=== PATIENT | male | born 1955 | race Caucasian/White ===

== ENCOUNTER 2021-06-04 14:02 | Inpatient (IN) | payer BC, MEDICARE ==
[~2021-06-04] VITALS: Ht 167.6 cm; Wt 53.2 kg
[2021-06-04 15:08] LABS: Basophils # (auto) 0.1 10 ^3/uL (0-0.2); Mean Corpuscular Hgb Conc. 33.4 g/dL (32.0-36.0); Monocytes % (auto) 7.9 % (0.0-12.0); Red Blood Cells 4.45 10^6/uL (4.5-5.90)
[2021-06-04 15:10] LABS: Basophils % (auto) 0.4 % (0.0-2.0); Eosinophils # (auto) 0.2 10 ^3/uL (0-0.8); Eosinophils % (auto) 1.3 % (0.0-7.0); Hematocrit 41.8 % (41.0-53.0); Lymphocytes % (auto) 7.8 % (10.0-50.0); Mean Corpuscular Hemoglobin 31.4 pg (28.0-32.0); Neutrophils # (auto) 10.9 10 ^3/uL (1.6-8.6); Neutrophils % (auto) 82.6 % (37.0-80.0); Red Cell Distribution Width 14.3 % (11.8-14.3); White Blood Cell 13.2 10^3/uL (4.4-10.8)
[2021-06-04 15:18] LABS: Calcium 8.6 mg/dL (8.5-10.1); Magnesium 3.3 mg/dL (1.6-2.6); Potassium 3.3 mmol/L (3.5-5.1)
[2021-06-04 15:23] LABS: BUN/Creatinine Ratio 11.2; Bilirubin, Total 0.2 mg/dL (0.2-1.0); Total Protein 7.5 g/dL (6.4-8.2)
[2021-06-04] MEDS ORDERED: POTASSIUM EFFERVESENT TAB 25 MEQ PO ONE (18:30)
[2021-06-04] MEDS ORDERED: BACITRACIN TOP OINT 1 UD PKG TOP ONE (21:15)
[2021-06-04] MEDS ORDERED: HYDROcodone-ACET 5/325MG TAB PO PRN (21:30)
[2021-06-04] MEDS ORDERED: DOCUSATE SOD 100 MG CAP PO PRN (21:30)
[2021-06-04] MEDS ORDERED: ONDANSETRON HCL 4 MG/2 ML VIAL IV PRN (21:30)
[2021-06-04] MEDS ORDERED: ACETAMINOPHEN 325 MG TAB PO PRN (21:30)
[2021-06-04] MEDS ORDERED: NITROGLYCERIN 0.4 MG SL TAB SL PRN (21:45)
[2021-06-04] MEDS ORDERED: cefTRIAXone 1GM/50ML D5W 50 ML IV ONE (21:45)
[2021-06-04] MEDS ORDERED: MORPHINE SULFATE INJECTION 2 MG/ML SYRG IV PRN (21:45)
[2021-06-04] MEDS: BACITRACIN TOP OINT 1 UD PKG TOP SCH (22:00)
[2021-06-04] MEDS: SODIUM CHLOR 0.9% PF (SALINE LOCK) 10ML VIAL/SYR IV SCH (22:00)
[2021-06-04] MEDS: ASCORBIC ACID 500 MG TAB PO SCH (22:00)
[2021-06-04] MEDS: ATORVASTATIN 20 MG TAB PO SCH (22:00)
[2021-06-05] VITALS (10 sets, daily range): BP systolic 112–128; BP diastolic 69–84
[2021-06-05] MEDS ORDERED: TEMAZEPAM 15 MG CAP PO ONE ×2 (02:15→21:00)
[2021-06-05] MEDS ORDERED: IBUP800T27 PO (04:12)
[2021-06-05] MEDS ORDERED: TEMA15CA2 PO (04:13)
[2021-06-05] MEDS ORDERED: GABA300C10 PO (04:13)
[2021-06-05] MEDS ORDERED: AMLO-489 PO (04:14)
[2021-06-05] MEDS ORDERED: HYDR12.56 PO (04:14)
[2021-06-05] MEDS ORDERED: METH100I PO (04:16)
[2021-06-05] MEDS ORDERED: UMEC1AER IN (04:18)
[2021-06-05] MEDS ORDERED: ATOR20TA PO (04:29)
[2021-06-05 05:31] LABS: Basophils # (auto) 0.1 10 ^3/uL (0-0.2); Eosinophils # (auto) 0.2 10 ^3/uL (0-0.8); Lymphocytes # (auto) 1.6 10 ^3/uL (0.4-5.4); Neutrophils # (auto) 5.4 10 ^3/uL (1.6-8.6); Neutrophils % (auto) 65.3 % (37.0-80.0)
[2021-06-05 05:34] LABS: Albumin 3.4 g/dL (3.4-5.0); Basophils % (auto) 0.7 % (0.0-2.0); Calcium 8.5 mg/dL (8.5-10.1); Eosinophils % (auto) 2.8 % (0.0-7.0); Hematocrit 37.5 % (41.0-53.0); Hemoglobin 13.1 g/dL (13.5-17.5); Lymphocytes % (auto) 19.3 % (10.0-50.0); Mean Corpuscular Hemoglobin 32.1 pg (28.0-32.0); Mean Corpuscular Hgb Conc. 34.9 g/dL (32.0-36.0); Mean Corpuscular Volume 92.1 fL (80.0-100.0); Monocytes % (auto) 11.9 % (0.0-12.0); Nucleated Red Blood Cells % 0.1 %; Potassium 3.4 mmol/L (3.5-5.1); Red Blood Cells 4.07 10^6/uL (4.5-5.90); Red Cell Distribution Width 14.2 % (11.8-14.3); White Blood Cell 8.3 10^3/uL (4.4-10.8)
[2021-06-05 05:39] LABS: BUN/Creatinine Ratio 16.9; Bilirubin, Total 0.2 mg/dL (0.2-1.0); Total Protein 6.5 g/dL (6.4-8.2)
[2021-06-05] MEDS: SODIUM CHLOR 0.9% PF (SALINE LOCK) 10ML VIAL/SYR IV SCH ×3 (06:46→21:37)
[2021-06-05] MEDS: ASCORBIC ACID 500 MG TAB PO SCH ×2 (10:41→21:25)
[2021-06-05] MEDS: ZINC SULFATE 220mg CAP or TAB PO SCH (10:41)
[2021-06-05] MEDS: MULTIPLE VITAMIN TAB PO SCH (10:41)
[2021-06-05] MEDS: ASPirin 81 mg TAB PO SCH (10:41)
[2021-06-05] MEDS: FAMOTIDINE (10MG/ML) 2ML VL IV SCH (10:42)
[2021-06-05] MEDS: BACITRACIN TOP OINT 1 UD PKG TOP SCH (10:43)
[2021-06-05] MEDS ORDERED: cefTRIAXone 1GM/50ML D5W 50 ML IV ONE (11:45)
[2021-06-05] MEDS ORDERED: IOHEXOL 350 MG/ML 100ML IJ ONE (14:43)
[2021-06-05] MEDS ORDERED: LORazepam 2MG/ML-1ML VIAL IV PRN (14:45)
[2021-06-05 18:55] LABS: Urine Bacteria NONE SEEN /hpf (None Seen); Urine Blood Negative /uL (Negative); Urine Budding Yeast MANY /hpf (None Seen); Urine WBC 2 /hpf (0 - 3)
[2021-06-05 18:58] LABS: Urine Specific Gravity > 1.050 (1.001-1.035)
[2021-06-05 19:11] LABS: Alcohol, Urine < 3.0 mg/dL (0-10); Amphetamine Screen, Urine NEGATIVE (NEGATIVE); Barbiturate Scree,Urine NEGATIVE (NEGATIVE); Benzodiazephine Screen, Urine NEGATIVE (NEGATIVE); Cannabinoid Screen, Urine POSITIVE (NEGATIVE); Cocaine Screen, Urine NEGATIVE (NEGATIVE); Opiate Scree,Urine NEGATIVE (NEGATIVE); Phencyclidine Screen, Urine NEGATIVE (NEGATIVE)
[2021-06-05] MEDS: guaiFENesin 200 MG/10 ML UD PO PRN (21:24)
[2021-06-05] MEDS: ATORVASTATIN 20 MG TAB PO SCH (21:25)
[2021-06-05] MEDS: GABAPENTIN 300 MG CAP PO SCH (21:25)
[2021-06-05] MEDS: IBUPROFEN 800 MG TAB PO SCH (21:25)
[2021-06-05] MEDS: METHOCARBAMOL 500 MG TAB PO PRN (21:35)
[2021-06-06] MEDS: METHOCARBAMOL 500 MG TAB PO PRN ×3 (01:49→16:27)
[2021-06-06 05:00] VITALS: BP 113/73
[2021-06-06] MEDS: guaiFENesin 200 MG/10 ML UD PO PRN ×2 (08:01→16:27)
[2021-06-06 09:00] VITALS: BP 113/83
[2021-06-06] MEDS: ASPirin 81 mg TAB PO SCH (09:20)
[2021-06-06] MEDS: GABAPENTIN 300 MG CAP PO SCH ×2 (09:20→21:36)
[2021-06-06] MEDS: ASCORBIC ACID 500 MG TAB PO SCH ×2 (09:20→21:36)
[2021-06-06] MEDS: FAMOTIDINE (10MG/ML) 2ML VL IV SCH (09:21)
[2021-06-06] MEDS: MULTIPLE VITAMIN TAB PO SCH (09:21)
[2021-06-06] MEDS: IBUPROFEN 800 MG TAB PO SCH ×2 (09:25→22:07)
[2021-06-06] MEDS: amLODIPine BESYLATE 5 MG TAB PO SCH (09:25)
[2021-06-06] MEDS: HCTZ 25 MG TAB PO SCH (09:26)
[2021-06-06] MEDS: BACITRACIN TOP OINT 1 UD PKG TOP SCH ×3 (09:26→21:37)
[2021-06-06] MEDS: ZINC SULFATE 220mg CAP or TAB PO SCH (09:29)
[2021-06-06] MEDS: SODIUM CHLOR 0.9% PF (SALINE LOCK) 10ML VIAL/SYR IV SCH ×3 (09:39→21:39)
[2021-06-06] MEDS: cefTRIAXone 1GM/50ML D5W 50 ML IV SCH (10:57)
[2021-06-06 13:00] VITALS: BP 127/72
[2021-06-06 16:00] VITALS: BP 134/87
[2021-06-06] MEDS ORDERED: TEMAZEPAM 15 MG CAP PO PRN (18:30)
[2021-06-06] MEDS: ATORVASTATIN 20 MG TAB PO SCH (21:35)
[2021-06-06 22:00] VITALS: BP 124/75
[2021-06-07] MEDS: METHOCARBAMOL 500 MG TAB PO PRN (04:55)
[2021-06-07 05:00] VITALS: BP 124/81
[2021-06-07] MEDS: ZINC SULFATE 220mg CAP or TAB PO SCH (09:36)
[2021-06-07] MEDS: ASCORBIC ACID 500 MG TAB PO SCH (09:39)
[2021-06-07] MEDS: cefTRIAXone 1GM/50ML D5W 50 ML IV SCH (09:57)
[2021-06-07] MEDS: ASPirin 81 mg TAB PO SCH (09:57)
[2021-06-07] MEDS: HCTZ 25 MG TAB PO SCH (09:58)
[2021-06-07] MEDS: MULTIPLE VITAMIN TAB PO SCH (09:59)
[2021-06-07] MEDS: GABAPENTIN 300 MG CAP PO SCH (09:59)
[2021-06-07] MEDS: BACITRACIN TOP OINT 1 UD PKG TOP SCH (10:00)
[2021-06-07] MEDS: amLODIPine BESYLATE 5 MG TAB PO SCH (10:00)
[2021-06-07 12:54] VITALS: BP 124/81
== END 2021-06-07 14:00 | disposition home or self-care (01) | DRG 641 ==
LOC: ER 14:02 → EDBD 14:02 → TELE 21:43 → TELE-CENTR 23:43
PROVIDERS: ADMIT Nurse Practitioner Family; ATTEND Family Medicine
DX: E86.0 Dehydration (principal); E87.6 Hypokalemia; S01.81XA Laceration without foreign body of other part of head, initial encounter; D72.829 Elevated white blood cell count, unspecified; D75.839 Thrombocytosis, unspecified; G62.9 Polyneuropathy, unspecified; H57.02 Anisocoria; E78.00 Pure hypercholesterolemia, unspecified; F17.200 Nicotine dependence, unspecified, uncomplicated; I10 Essential (primary) hypertension; M13.0 Polyarthritis, unspecified; J43.9 Emphysema, unspecified; W18.39XA Other fall on same level, initial encounter; Z20.822 Contact with and (suspected) exposure to COVID-19; Z82.3 Family history of stroke; Y93.89 Activity, other specified; Y92.096 Garden or yard of other non-institutional residence as the place of occurrence of the external cause; Y99.8 Other external cause status
CPT/HCPCS: 36415; 70450; 70498; 70551; 71046; 71250; 80053; 80061; 80307; 81001; 83735; 84484; 85025; 85379; 87426; 93005; 93306; 93886; 95819; 96365; G0378; J0696; J3490